=== PATIENT | male | born 1935 | race Caucasian/White ===

== ENCOUNTER 2018-04-13 16:51 | Inpatient (IN) | payer MEDICARE ==
[2018-04-13 17:58] LABS: ADD MAN DIFF? NO
[2018-04-13 18:02] LABS: WHITE BLOOD COUNT 16.8 10^3/ul (4.8-10.8)
[2018-04-13 18:02] LABS: BASOPHIL # 0.1 10^3/ul (0.0-0.1); BASOPHILS % 0.3 % (0.0-2.0); HEMATOCRIT 51.1 % (42.0-52.0); HEMOGLOBIN 16.3 g/dl (14.0-18.0); LYMPHOCYTES # 0.7 10^3/ul (0.8-2.9); MEAN CORPUSCULAR HEMOGLOBIN 31.2 pg (29.0-33.0); MEAN CORPUSCULAR HGB CONC 31.9 g/dl (32.0-37.0); MEAN CORPUSCULAR VOLUME 97.9 fl (82.0-101.0); MEAN PLATELET VOLUME 9.1 fl (7.4-10.4); MONOCYTE # 1.1 10^3/ul (0.3-0.9); MONOCYTES % 6.6 % (0.0-11.0); NEUTROPHIL # 14.9 10^3/ul (1.6-7.5); NEUTROPHILS % 88.7 % (39.0-77.0); PLATELET COUNT 261 10^3/UL (140-415); RED BLOOD COUNT 5.22 10^6/ul (4.70-6.10); RED CELL DISTRIBUTION WIDTH 13.2 % (11.5-14.5)
[2018-04-13 18:20] LABS: ALANINE AMINOTRANSFERASE 20 IU/L (13-69); ALBUMIN 4.5 g/dl (3.3-4.9); ALBUMIN/GLOBULIN RATIO 1.36; ALKALINE PHOSPHATASE 97 IU/L (42-121); ANION GAP 13 (5-13); ASPARTATE AMINO TRANSFERASE 28 IU/L (15-46); BILIRUBIN,INDIRECT 0.1 mg/dl (0-1.1); BILIRUBIN,TOTAL 0.1 mg/dl (0.2-1.3); BLOOD UREA NITROGEN 19 mg/dl (7-20); CALCIUM 9.3 mg/dl (8.4-10.2); CARBON DIOXIDE 34 mmol/L (21-31); CHLORIDE 99 mmol/L (97-110); CREATININE 1.53 mg/dl (0.61-1.24); GLUCOSE 156 mg/dl (70-220); LIPASE 80 U/L (23-300); POTASSIUM 4.5 mmol/L (3.5-5.1); SODIUM 146 mmol/L (135-144); TOTAL PROTEIN 7.8 g/dl (6.1-8.1)
[2018-04-13 18:32] LABS: TROPONIN-I < 0.012 ng/ml (0.000-0.120)
[2018-04-13] MEDS: SOD CHLORIDE 0.9% 1,000 ML IV (19:10)
[2018-04-13] MEDS ORDERED: ACETAMINOPHEN 325 MG TAB PO ×2 (19:30→20:00)
[2018-04-13] MEDS ORDERED: ONDANSETRON 4 MG INJ IV (19:30)
[2018-04-13] MEDS ORDERED: MAGNESIUM HYDROXIDE 30ML CUP PO (20:00)
[2018-04-13] MEDS ORDERED: NACL 0.9% 3 ML SYG IV (20:00)
[2018-04-13] MEDS: DOCUSATE SODIUM 100 MG CAP PO (20:00)
[2018-04-13] MEDS: DEXTROSE 5%-0.45% NACL 1,000 ML IV (20:58)
[2018-04-13 21:47] LABS: ADD UMIC YES; UR ASCORBIC ACID NEGATIVE (NEGATIVE); UR BILIRUBIN (Dip) NEGATIVE (NEGATIVE); UR BLOOD (Dip) 2+ mg/dL (NEGATIVE); UR CLARITY CLEAR (CLEAR); UR COLOR YELLOW (YELLOW); UR GLUCOSE (Dip) NEGATIVE (NEGATIVE); UR KETONES (Dip) NEGATIVE (NEGATIVE); UR LEUKOCYTE ESTERASE (Dip) NEGATIVE Leu/ul (NEGATIVE); UR NITRITE (Dip) NEGATIVE (NEGATIVE); UR RBC 25 /HPF (0-5); UR SPECIFIC GRAVITY (Dip) 1.015 (1.003-1.030); UR TOTAL PROTEIN (Dip) NEGATIVE (NEGATIVE); UR UROBILINOGEN (Dip) NEGATIVE (NEGATIVE); UR WBC 2 /HPF (0-5)
[2018-04-13] MEDS: PHENOBARBITAL 32.4 MG TAB PO (23:09)
[2018-04-13] MEDS: ONDANSETRON 4 MG INJ IV (23:18)
[2018-04-14 05:02] LABS: ADD MAN DIFF? NO
[2018-04-14 05:09] LABS: BASOPHILS % 0.4 % (0.0-2.0); EOSINOPHILS % 0.1 % (0.0-7.0); HEMATOCRIT 43.4 % (42.0-52.0); HEMOGLOBIN 14.1 g/dl (14.0-18.0); LYMPHOCYTES # 1.2 10^3/ul (0.8-2.9); LYMPHOCYTES % 10.1 % (15.0-51.0); MEAN CORPUSCULAR HEMOGLOBIN 31.4 pg (29.0-33.0); MEAN CORPUSCULAR HGB CONC 32.5 g/dl (32.0-37.0); MEAN CORPUSCULAR VOLUME 96.7 fl (82.0-101.0); MEAN PLATELET VOLUME 9.5 fl (7.4-10.4); MONOCYTE # 1.1 10^3/ul (0.3-0.9); MONOCYTES % 9.4 % (0.0-11.0); NEUTROPHILS % 79.6 % (39.0-77.0); PLATELET COUNT 215 10^3/UL (140-415); RED BLOOD COUNT 4.49 10^6/ul (4.70-6.10); RED CELL DISTRIBUTION WIDTH 13.4 % (11.5-14.5)
[2018-04-14 05:09] LABS: WHITE BLOOD COUNT 11.4 10^3/ul (4.8-10.8)
[2018-04-14 05:13] LABS: HEMOGLOBIN A1C 5.3 % (0-5.9)
[2018-04-14 05:25] LABS: ALANINE AMINOTRANSFERASE 24 IU/L (13-69); ALBUMIN 3.4 g/dl (3.3-4.9); ALBUMIN/GLOBULIN RATIO 1.36; ALKALINE PHOSPHATASE 76 IU/L (42-121); ANION GAP 5 (5-13); ASPARTATE AMINO TRANSFERASE 20 IU/L (15-46); BLOOD UREA NITROGEN 19 mg/dl (7-20); CALCIUM 8.2 mg/dl (8.4-10.2); CARBON DIOXIDE 31 mmol/L (21-31); CHLORIDE 106 mmol/L (97-110); CREATININE 1.38 mg/dl (0.61-1.24); GLUCOSE 107 mg/dl (70-220); MAGNESIUM 2.3 mg/dl (1.7-2.5); PHOSPHORUS 2.7 mg/dl (2.5-4.9); POTASSIUM 4.2 mmol/L (3.5-5.1); SODIUM 142 mmol/L (135-144); TOTAL PROTEIN 5.9 g/dl (6.1-8.1)
[2018-04-14] MEDS: DEXTROSE 5%-0.45% NACL 1,000 ML IV ×3 (06:23→18:18)
[2018-04-14] MEDS: PANTOPRAZOLE (EC) 40 MG TAB PO (06:27)
[2018-04-14] MEDS: PHENOBARBITAL 32.4 MG TAB PO ×3 (09:00→20:34)
[2018-04-14] MEDS: DOCUSATE SODIUM 100 MG CAP PO ×2 (09:00→20:33)
[2018-04-14] MEDS ORDERED: PHENOBARBITAL 32.4 MG TAB PO (09:00)
[2018-04-14] MEDS: INFLUENZA VIRUS VACCINE 0.5 ML (DISPENSING) IM* (09:01)
[2018-04-14] MEDS: ENOXAPARIN 30 MG/0.3 ML SYG SC (09:03)
[2018-04-14] MEDS: AL HYDROX/MG HYDROX/SIMETH 30 ML CUP PO (12:23)
[2018-04-15] MEDS: DEXTROSE 5%-0.45% NACL 1,000 ML IV ×2 (01:55→06:44)
[2018-04-15 02:22] LABS: PHENOBARBITAL 19.5 mg/L (15.0-40.0)
[2018-04-15] MEDS: PANTOPRAZOLE (EC) 40 MG TAB PO (05:11)
[2018-04-15 05:29] LABS: ADD MAN DIFF? NO
[2018-04-15 05:37] LABS: WHITE BLOOD COUNT 6.9 10^3/ul (4.8-10.8)
[2018-04-15 05:37] LABS: BASOPHILS % 0.4 % (0.0-2.0); EOSINOPHILS # 0.1 10^3/ul (0.0-0.5); HEMATOCRIT 41.4 % (42.0-52.0); HEMOGLOBIN 13.5 g/dl (14.0-18.0); LYMPHOCYTES # 1.3 10^3/ul (0.8-2.9); LYMPHOCYTES % 18.4 % (15.0-51.0); MEAN CORPUSCULAR HEMOGLOBIN 31.5 pg (29.0-33.0); MEAN CORPUSCULAR HGB CONC 32.6 g/dl (32.0-37.0); MEAN CORPUSCULAR VOLUME 96.5 fl (82.0-101.0); MEAN PLATELET VOLUME 9.5 fl (7.4-10.4); MONOCYTE # 0.9 10^3/ul (0.3-0.9); MONOCYTES % 12.9 % (0.0-11.0); NEUTROPHIL # 4.6 10^3/ul (1.6-7.5); PLATELET COUNT 190 10^3/UL (140-415); RED BLOOD COUNT 4.29 10^6/ul (4.70-6.10); RED CELL DISTRIBUTION WIDTH 13.3 % (11.5-14.5)
[2018-04-15 06:03] LABS: ALANINE AMINOTRANSFERASE 23 IU/L (13-69); ALBUMIN 3.2 g/dl (3.3-4.9); ALBUMIN/GLOBULIN RATIO 1.33; ALKALINE PHOSPHATASE 69 IU/L (42-121); ANION GAP 4 (5-13); ASPARTATE AMINO TRANSFERASE 21 IU/L (15-46); BLOOD UREA NITROGEN 13 mg/dl (7-20); CALCIUM 7.9 mg/dl (8.4-10.2); CARBON DIOXIDE 30 mmol/L (21-31); CHLORIDE 106 mmol/L (97-110); CREATININE 1.21 mg/dl (0.61-1.24); POTASSIUM 3.8 mmol/L (3.5-5.1); SODIUM 140 mmol/L (135-144); TOTAL PROTEIN 5.6 g/dl (6.1-8.1)
[2018-04-15 06:06] LABS: BILIRUBIN,INDIRECT 0.1 mg/dl (0-1.1); BILIRUBIN,TOTAL 0.1 mg/dl (0.2-1.3); GLUCOSE 106 mg/dl (70-220)
[2018-04-15] MEDS: PHENOBARBITAL 32.4 MG TAB PO ×2 (08:55→20:53)
[2018-04-15] MEDS: DOCUSATE SODIUM 100 MG CAP PO ×2 (08:55→20:52)
[2018-04-15] MEDS: ENOXAPARIN 30 MG/0.3 ML SYG SC (08:57)
[2018-04-16] MEDS: PANTOPRAZOLE (EC) 40 MG TAB PO (05:29)
[2018-04-16 05:42] LABS: ALANINE AMINOTRANSFERASE 17 IU/L (13-69); ALBUMIN/GLOBULIN RATIO 1.25; ALKALINE PHOSPHATASE 64 IU/L (42-121); ANION GAP 5 (5-13); ASPARTATE AMINO TRANSFERASE 17 IU/L (15-46); BLOOD UREA NITROGEN 13 mg/dl (7-20); CALCIUM 8.1 mg/dl (8.4-10.2); CARBON DIOXIDE 28 mmol/L (21-31); CHLORIDE 107 mmol/L (97-110); CREATININE 1.33 mg/dl (0.61-1.24); GLUCOSE 89 mg/dl (70-220); POTASSIUM 3.8 mmol/L (3.5-5.1); SODIUM 140 mmol/L (135-144); TOTAL PROTEIN 5.4 g/dl (6.1-8.1)
[2018-04-16 05:46] LABS: B-TYPE NATRIURETIC PEPTIDE 508 PG/ML (0-450)
[2018-04-16] MEDS: DOCUSATE SODIUM 100 MG CAP PO ×2 (08:44→20:41)
[2018-04-16] MEDS: FUROSEMIDE 40 MG TAB PO (08:45)
[2018-04-16] MEDS: PHENOBARBITAL 32.4 MG TAB PO ×2 (08:45→21:32)
[2018-04-16] MEDS: ENOXAPARIN 30 MG/0.3 ML SYG SC (08:46)
[2018-04-17] MEDS: PANTOPRAZOLE (EC) 40 MG TAB PO (06:33)
[2018-04-17] MEDS: PHENOBARBITAL 32.4 MG TAB PO (08:41)
[2018-04-17] MEDS: DOCUSATE SODIUM 100 MG CAP PO (08:41)
[2018-04-17] MEDS: FUROSEMIDE 40 MG TAB PO (08:42)
[2018-04-17] MEDS: ENOXAPARIN 30 MG/0.3 ML SYG SC (08:43)
== END 2018-04-17 12:30 | disposition home or self-care (01) | DRG 392 ==
LOC: E/R 16:51 → MS1 19:07
DX: K52.9 Noninfective gastroenteritis and colitis, unspecified (principal); E87.0 Hyperosmolality and hypernatremia; N17.9 Acute kidney failure, unspecified; K59.00 Constipation, unspecified; R11.2 Nausea with vomiting, unspecified; R60.9 Edema, unspecified; N18.9 Chronic kidney disease, unspecified; N20.0 Calculus of kidney; R10.13 Epigastric pain; G40.909 Epilepsy, unspecified, not intractable, without status epilepticus; E86.0 Dehydration
CPT/HCPCS: 36415; 71045; 74019; 74176; 80053; 80184; 81001; 83036; 83690; 83735; 83880; 84100; 84484; 85025; 90686; 93005; 93306; 93970; 97161; 99285-25